=== PATIENT | female | born 1985 | race Caucasian/White ===

== ENCOUNTER 2016-09-11 16:58 | Emergency (ER) | payer BC, OTHER ==
--- NOTE | ~2016-09-11 | US67 ---
[facility] A Service of [facility] RADIOLOGY TEXT RESULTS PATIENT: BHARAT CORRAL LOCATION: CFTX : 83 UNIT #: [id number] AGE: [address]: Alyse Monreal APRN SEX: F ORDER DR: [id number] [facility] [address] [place], [place] [address] [id number] E MR#: [id number] Acc #: [id number] NAME: BHARAT CORRAL : 1985 SEX: F STUDY DATE/TIME: 09/11/2016 17:28 UNIT: CFTX ROOM: STUDY DESCRIPTION: US Gallbladder Attending Physician: Alyse Monreal A.P.R.N. MEDICAL IMAGING REPORT This report is preliminary unless electronic signature is present EXAM Gallbladder ultrasound 09/11/2016 HISTORY Pain. Pain times 6 years intermittently, known cholelithiasis. Diabetes. TECHNIQUE Real-time ultrasonography right upper quadrant performed. COMPARISON No prior abdominal imaging for comparison. FINDINGS Visualized portions of pancreas unremarkable, but significant portions of pancreatic head and tail are obscured by bowel gas artifact. The liver appears normal in contour. It is at upper limits of normal in size, measuring about 16.80 cm in craniocaudal extent. Generally increased parenchymal echogenicity suggesting some degree of underlying fatty infiltration. No focal parenchymal abnormalities seen. Some portions of the upper liver are not visualized. The right kidney measures 10.8 cm in greatest length. No hydronephrosis or nephrolithiasis. No cystic abnormality. No perinephric fluid collection. On 1 of the sagittal images, there is an area of isolated parenchymal prominence, measuring about 2.8 cm in diameter. I favor this is a column of Ignacio or volume averaging artifact. The possibility of true solid renal nodules/neoplasm is not excluded though felt less likely. Best further evaluated with renal protocol CT. The gallbladder is low in volume. There is at least 1 prominent shadowing gallstone present, measuring about 1.7 cm in diameter. There is no pericholecystic fluid or gallbladder wall thickening. Gallbladder wall measures about 2.4 mm in thickness. Common bile duct measures about 3.4 mm in diameter. No intra- STS. [facility] A Service of [facility] RADIOLOGY TEXT RESULTS PATIENT: BHARAT CORRAL LOCATION: ANGELITATX : 83 UNIT #: [id number] AGE: [address]: Alyse Monreal APRN SEX: F ORDER DR: or extrahepatic biliary ductal dilatation. IMPRESSION 1. No sonographic evidence of acute cholecystitis. 2. At least 1 prominent shadowing gallstone measuring 1.7 cm in diameter. The gallbladder is low in volume, and there is no pericholecystic fluid or gallbladder wall thickening. No ductal dilatation. 3. Fatty infiltration of the liver without suspicious focal parenchymal abnormalities seen. 4. Incomplete visualization of pancreas. If the pancreas is of acute clinical concern, it could be further assessed with CT. 5. No hydronephrosis or nephrolithiasis in the right kidney. Questionable solid nodule mid-right kidney measuring 2.8 cm in diameter. I favor the appearance is due to volume averaging or column of Ignacio, and but I cannot exclude solid nodule, and further assessment with renal protocol CT is recommended. This could be performed on an elective basis. Dictated by... Caden Wilhelm M.D. THIS IS AN ELECTRONICALLY VERIFIED REPORT Caden Wilhelm M.D. at 09/12/2016 10:54 PM BLAYNE/alexis TD: 09/11/2016 18:58 JOB #: [id number] MEDICAL IMAGING REPORT Page 1 of 1 COPY
[2016-09-11 16:44] LABS: BASOPHIL% 0.2 % (0-2.5); EOSINOPHIL# 0.1 X10e3 (0-0.7); EOSINOPHIL% 1.9 % (0.0-7.0); HEMATOCRIT 40.2 % (35.0-45.0); HEMOGLOBIN 13.2 gm/dL (12.0-16.0); LYMPHOCYTE% 39.8 % (17.0-45.0); MEAN CELL VOLUME 84.8 FL (83-96); MEAN CORPUSCULAR HEMOGLOBIN 27.8 PG (28-34); MEAN CORPUSCULAR HGB CONC 32.8 g/dL (30-36); MEAN PLATELET VOLUME 8.2 FL (6.5-11.5); MONOCYTE# 0.5 X10e3 (0-1.0); MONOCYTE% 7.4 % (3.0-12.0); NEUTROPHIL# 3.8 X10e3 (1.5-7.1); NEUTROPHIL% 50.7 % (40-75); PLATELET COUNT 282 X10e3 (140-420); RED BLOOD COUNT 4.74 X10e (3.90-5.30); RED CELL DISTRIBUTION WIDTH 14.2 % (11.0-15.5); WHITE BLOOD COUNT 7.5 X10e3 (4.0-10.5)
[2016-09-11 16:48] LABS: DIFF IND NO
[2016-09-11 17:05] LABS: ALBUMIN SERUM 3.5 g/dL (3.5-5.0); BILIRUBIN, DIRECT 0.1 mg/dL (0.0-0.2); BILIRUBIN,INDIRECT 0.3 mg/dL (0.0-0.9); BILIRUBIN,TOTAL 0.4 mg/dL (0.2-2.0); BUN/CREATININE RATIO 12.85; CREATININE SERUM 0.7 mg/dL (0.6-1.4); GLOM FILT RATE Estimated 115.5 mL/min (>60); PROTEIN TOTAL SERUM 6.1 g/dL (6.0-8.3)
[2016-09-11 17:12] LABS: URINE SOURCE CLEAN CATCH
[2016-09-11 17:32] LABS: URINE APPEARANCE CLEAR; URINE BILIRUBIN NEG (NEG); URINE BLOOD NEG (NEG); URINE COLOR YELLOW; URINE GLUCOSE NEG (NEG); URINE KETONE NEG (NEG); URINE LEUKOCYTE ESTERASE NEG (NEG); URINE NITRATE NEG (NEG); URINE PH 5.5 (5-8); URINE PROTEIN NEG (NEG); URINE SPECIFIC GRAVITY 1.004 (1.003-1.035); URINE UROBILINOGEN 0.2 MG/DL (NEG)
[2016-09-11 17:40] LABS: CULTURE INDICATED? NO
== END 2016-09-11 19:00 | disposition home or self-care (01) ==
LOC: CFTX 16:58
DX: K80.80 Other cholelithiasis without obstruction (principal); K21.9 Gastro-esophageal reflux disease without esophagitis; F17.210 Nicotine dependence, cigarettes, uncomplicated
CPT/HCPCS: 36415; 76705; 80048; 80076; 81003; 82150; 82947; 83690; 84703; 85025; 99284

== ENCOUNTER → 2016-11-04 | Outpatient (CLI) | payer OTHER ==
[2016-11-04 16:33] LABS: ALBUMIN SERUM 4.1 g/dL (3.5-5.0); BILIRUBIN,TOTAL 1.9 mg/dL (0.2-2.0); CALCIUM SERUM 9.3 mg/dL (8.4-10.2); POTASSIUM 4.3 mmol/L (3.5-5.1); PROTEIN TOTAL SERUM 7.6 g/dL (6.0-8.3)
== END | disposition home or self-care (01) ==
LOC: CLAB 15:24
DX: B17.9 Acute viral hepatitis, unspecified (principal)
CPT/HCPCS: 36415; 80053